=== PATIENT | male | born 1975 | race Caucasian/White ===

== ENCOUNTER 2017-08-07 21:54 | Emergency (ER) | payer MEDICAID ==
[~2017-08-07] VITALS: Ht 175.3 cm; Wt 90.7 kg
[2017-08-07] MEDS ORDERED: ATENOLOL25 MG PO (22:08)
--- NOTE | 2017-08-07 22:09 | Emergency Room Report ---
History of Present Illness Time Seen by 220 Presenting Problem in Triage Pt arrived:Walked Presenting Problem:PT C/O PAIN IN HEAD AND RIGHT SIDE OF NECK FOR A COUPLE DAYS. Onset of symptoms date/time:/ or onset unknown for:MEDICAL HX UNKNOWN Treatment Prior to Arrival: [employer]LE[employer] FOREM[employer] Provided by: Sepsis Risk Assessment: Temp: 98 B/P: 192/110 MAP: 137 Pulse: 65 Resp: 20 Recent fever? N Clinical Suspician of Infection? N Mental Status: 1 - Regular (Normal Baseline) Sepsis Risk:Low Sepsis Risk Have you (or family members/close friends) recently traveled outside the [place]? N If Yes, where/when: Have you had exposure to infectious disease within the past month? N TB? Other? Specify: Source patient, RN notes reviewed, family, old records Exam Limitations no limitations Comment rt sided kimbrough over the last few days with no fever or rash and had insect bite to rt hand - no aura and no hx of migraines and no neuro sx Cardiac Chest Pain Chest pain indicative of cardiac No Timing/Duration this evening Severity moderate ALLERGIES Coded Allergies: Penicillins (08/07/17) amoxicillin (08/07/17) Home Medications Reported Medications Atenolol (Atenolol) 12.5 MG PO BID History Medical History General CAD? No Angina: No FL: No Hypertension? Yes Hyperlipidemia? Yes CHF? No DVT? No PE? No COPD? No Asthma? No Anemia? No GERD? No Gastric ulcers? No GI Bleed? No Hernia? No Thyroid Problems? No Hypothyroidism? No CVA? No Seizures? No Diabetes? No Renal Insuffiency? No End Stage Renal Disease? No UTI? No Stones? No BPH? No GB Disease: No Nephritic Syndrome? No Asplenia? No Hepatitis? No Sickle Cell Disease? No Arthritis? No Migraines? No Cataracts? No Glaucoma? No MRSA? No HIV? No TB? No Anxiety? No Depression? No Cancer? No More? Yes Additional hx: [place] WHITE SYNDROME Immunization Hx DT/Tetanus > 10 Years Ago Surgical Hx Previous Surgery?Y Tonsils And/Or Adenoids ABLASION Social History Smoking Hx Smoker: Former Smoker Tobacco: No Are you/the child exposed to second-hand smoke: No Alcohol Alcohol: No Drugs none Review of Systems All Other Systems Reviewed and Negative Constitutional denies fever Eyes denies blurred vision, denies photophobia, denies vision change ENT denies: ear pain, ear discharge, epistaxis, throat pain. Respiratory denies cough, denies shortness of breath Cardiovascular denies chest pain, denies syncope Gastrointestinal denies abdominal pain, denies diarrhea, denies vomiting Genitourinary denies: dysuria, frequency, hesitancy, hematuria. Musculoskeletal denies back pain, denies joint pain, denies joint swelling, denies neck pain Skin see HPI, denies rash, other Psychiatric/Neurological see HPI, headache, denies seizure Physical Exam Vital Signs Vital Signs Date Time Temp Pulse Resp B/P Pulse O2 O2 Flow FiO2 Ox Delivery Rate 08/07 2157 98.0 65 20 192/110 96 - WBC >12,000 or <4,000 or 10% bands? 2 or more SIRS Criteria Met? B/P:192/110 MAP:137 Creatinine >2.0? UA output<0.5ml/kg/hr for 2 hrs? Platelet count >100,000? Lactate >2.0mmol/1? INR >1.2 or PTT > than 60 sec? Evidence of Organ Dysfunction? Provider documented clinical suspician of infection? N Sepsis Criteria Count: 1 Sepsis Risk: Low Sepsis Risk General Appearance no apparent distress Eye Exam - bilateral eye PERRL, bilateral eye EOMI Ear, Nose, Throat normal ENT inspection Neck non-tender Respiratory Status No: respiratory distress. Cardiovascular regular rate/rhythm Peripheral Pulses Pulses normal Yes Gastrointestinal soft Extremities normal inspection Strength 4 Upper Ext (L), 4 Upper Ext (R), 4 Lower Ext (L), 4 Lower Ext (R) Neurologic alert, manager integrated II-XII nml as tested, no motor/sensory deficits Glascow Coma Scale Glascow Coma Scale Response Value EYE response: 4 Spontaneously 4 MOTOR response: 6 OBEYS 6 VERBAL response: 5 Oriented & Converses 5 Total 15 Reflexes Reflexes normal Yes Mental status normal mood/affect Skin no rash cons.w/shingles Medical Decision Making LABS/Meds/Orders Pt receiving controlled substance in ED? No Results/Orders Orders Procedure Date/time Status DIET-NOTHING BY MOUTH 08/[address] SINUS (MAX-FACIAL W/O CONT) 08/[address] SCAN REQ 08/07 2209 Complete SED RATE 08/07 2209 Active COMPLETE METABOLIC PANEL 08/07 2209 Active CBC WITH AUTO DIFF 08/[address] HEAD W/O CONTRAST 08/07 UNK Active XRAY/CT/US XRAY/CT/US CT head, sinus CT interpretation by discussed w/radiologist Time results known: 2242 CT Results normal/NAD Departure Departure Time of Disposition 2240 Disposition DC Home or Self Care(routine) Clinical Impression Primary Impression: Headache Qualifiers: Headache type: unspecified Headache chronicity pattern: acute headache Intractability: not intractable Qualified Code: R51 - Headache Secondary Impressions: Cellulitis Qualifiers: Site of cellulitis: extremity Site of cellulitis of extremity: upper extremity Laterality: right Qualified Code: L03.113 - Cellulitis of right upper limb Condition STABLE Patient Instructions DI for Headache Additional Instructions use meds and see pcp about bp and headache Discharge Counseling Counseled pt/family regarding diagnosis, test results, medications/RX, follow up needs Prescriptions Current Visit Scripts SULFAMETHOXAZOLE/TRIMETHOPRIM (Sulfamethoxazole-Tmp Ds Tablet) 1 TAB PO BID #14 TAB MUPIROCIN 2% (Bactroban Oint) 1 SCOTTIE TP BID #1 TUBE ED Critical Care Critical Care No at 2249
[2017-08-07] MEDS ORDERED: SEPTRA DS 800 M1 TAB PO (22:44)
[2017-08-07] MEDS ORDERED: BACTROBAN2% TP (22:44)
[2017-08-07 22:55] VITALS: BP 146/93
--- NOTE | 2017-08-08 05:27 | RADIOLOGY REPORT PS360 ---
CT HEAD W/O CONTRAST HISTORY: Severe headache DIEHL ORDERING PHYSICIAN: Jina Quevedo MD PATIENT AGE: 42 years COMPARISON: None TECHNIQUE: Axial images obtained without contrast. Brain and bone windows reviewed. FINDINGS: No midline shift, mass effect, intracranial hemorrhage, hydrocephalus, or extra-axial fluid collection is evident. The calvarium has an unremarkable appearance. No mastoid effusion. The visualized paranasal sinuses are unremarkable. IMPRESSION: No acute intracranial findings.
--- NOTE | 2017-08-08 05:31 | RADIOLOGY REPORT PS360 ---
CT SINUS (MAX-FACIAL W/O CONT) CLINICAL INDICATION: Severe headache DIEHL ORDERING PHYSICIAN: Jina Quevedo MD PATIENT AGE: 42 years COMPARISON: None TECHNIQUE:Axial, sagittal, and coronal images are generated and reviewed without contrast COMPARISON: None FINDINGS:No sinus air-fluid level. Trace mucosal thickening involving the maxillary and ethmoid sinuses. Small right lawanda bullosa. Small septal spur on the left. There is mild rightward nasal septal deviation superiorly and leftward nasal septal deviation inferiorly. The ostiomeatal complexes are patent but slightly narrowed right greater than left. Sandhya cells are present contributing to ostiomeatal narrowing. The TMJs are unremarkable as are the orbits. No mastoid effusion. IMPRESSION: 1. Mild chronic sinus disease as detailed above. 2. Small right lawanda bullosa with Sandhya cells and left nasal septal spur
== END 2017-08-07 22:56 | disposition home or self-care (01) ==
LOC: ER 21:54
DX: R51 Headache (principal); L03.113 Cellulitis of right upper limb; Z88.0 Allergy status to penicillin; I10 Essential (primary) hypertension; E78.5 Hyperlipidemia, unspecified; Z87.891 Personal history of nicotine dependence

== ENCOUNTER 2017-10-20 15:44 | Emergency (ER) | payer MEDICAID ==
[~2017-10-20] VITALS: Ht 175.3 cm; Wt 104.3 kg
[~2017-10-20 15:44] MED LIST: ATENOLOL25 MG PO; BACTROBAN2% TP; SEPTRA DS 800 M1 TAB PO
--- OUTSIDE RECORDS SUMMARY | 2017-10-20 15:56 | External Medical Summary Rpt | CCD ---
Author Author , CHELSEY BARBOSA Address Unknown Phone [email or web address] Care Team Providers Care Records Assistant Name Role Phone [facility] Unavailable HEALTH C, [facility] NGUYEN, NGUYEN Unavailable Unavailable FROYLAN, FROYLAN Unavailable Unavailable [facility] Unavailable Unavailable [facility], [facility] Unavailable Unavailable INC, [facility] Un[facility] Unavailable [facility], [facility] [place] [facility] Unavailable Unavailable [facility], [place] [facility], Unavailable Unavailable PLLC, [facility], [facility] Unavailable Unavailable EM[facility]Y [facility], [facility], Unavailable Unavailable [facility], Unavailable Unavailable [facility] Purpose Continuity of Care Document - 04-03-2016 through 2016 Problems Code Diagnosis DOS Provider Status E785 HYPERLIPIDE 08-07-2017 [facility] UNSPECIFIED INC I10 ESSENTIAL 08-07-2017 [facility] HYPERTENSIO INC N [id number] CELLULITIS 08-07-2017 [facility] OF RIGHT PHYSICIANS, UPPER LIMB [facility] R51 HEADACHE 08-07-2017 [facility], [facility] [id number] PERSONAL 08-07-2017 [facility] NICOTINE INC DEPENDENCE Z880 ALLERGY 08-07-2017 [facility] PENICILLIN INC [id number] EFFUSION 11-01-2016 [facility] LEFT KNEE N EMERGENCY PHYS [id number] PAIN IN 11-01-2016 [facility] LEFT KNEE N EMERGENCY PHYS I456 PRE-EXCITAT 08-06-2016 [facility] SYNDROME R001 BRADYCARDIA 08-06-2016 [place] [facility] UNSPECIFIED [facility]OUNDATION [id number] SECONDARY 07-24-2016 [facility] NONINFECTIO LAW US IRIDOCYCLIT IS BILATERAL H5203 HYPERMETROP 07-24-2016 [facility] [place] LAW BILATERAL [id number] PAIN IN 06-27-2016 [facility] RIGHT KNEE [facility] R0600 DYSPNEA 06-27-2016 [facility] R0601 ORTHOPNEA 06-27-2016 [facility] [id number] PERSONAL HX 04-03-2016 [facility] INFARCT NO RESID DEFICIT Medications Na ND Rx Da Fi Fi Am Da Di Ph RX Ph St me C No te ll ll ou ys ag ar # ys at rm s nt no ma ic us Or Da si cy ia de te s n re d AT 68 10 11 60 30 00 WA Ac EN 38 -0 -1 .0 00 L- ti OL 20 9- 0- 00 07 MA ve OL 02 20 20 49 RT 20 17 17 72 25 1 27 PH AR MG MA CY TA BL #5 ET 91 AT 68 10 11 30 30 00 WA Ac OR 64 -0 -1 .0 00 L- ti VA 50 9- 0- [address] 45 20 20 49 RT AT 95 17 17 72 IN 4 30 PH AR 20 MA CY MG #5 TA 91 BL ET AT 00 07 07 60 30 00 WA Ac EN 78 -0 -2 .0 00 L- ti OL 11 5- 8- 00 07 MA ve OL 07 20 20 49 RT 80 17 17 72 25 1 27 PH AR MG MA CY TA BL #5 ET 91 AT 68 07 07 30 30 00 WA Ac OR 64 -0 -2 .0 00 L- ti VA 50 5- 8- [address] 45 20 20 49 RT AT 95 17 17 72 IN 4 30 PH AR 20 MA CY MG #5 TA 91 BL ET AT 00 01 02 60 30 00 WA Ac EN 78 -2 -1 .0 00 L ti OL 11 6- 7- 00 07 MA ve OL 07 20 20 14 RT 80 17 17 85 25 1 33 PH AR MG MA CY TA BL 10 ET -2 96 7 AT 68 01 02 30 30 00 WA Ac OR 64 -2 -1 .0 00 L ti VA 50 6- 7- [address] 48 20 20 14 RT AT 17 17 17 85 IN 0 34 PH AR 20 MA CY MG 10 TA -2 BL 96 ET 7 ME 69 12 01 20 10 00 CV Ac LO 09 -2 -1 .0 00 S ti XI 70 2- 3- 00 01 PH ve CA 15 20 20 27 AR M 80 16 17 79 MA 7. 7 82 CY 5 MG #0 23 TA 32 BL ET TR 00 12 01 12 2 00 CV Ac AM 09 -2 -1 .0 00 S ti AD 30 2- 3- 00 01 PH ve OL 05 20 20 27 AR 80 16 17 79 MA HC 5 83 CY L 50 #0 23 MG 32 TA BL ET Procedures Procedure [place] [address] [facility] HEAD/BRAI 7 MEDICAL N W/[place] [address] [facility] [facility] MAXILLOFA 7 MEDICAL MEDICAL CIAL W/O IMAGING IMAGING CONTRAST ASS ASS MATERIAL Encounters Encounter Start End Date Code Location Performer Type Date EMERGENCY 85744 JO[facility] GALEANO DEPT 7 7 PHYSICIAN VISIT S, PLLC HIGH SEVERITY& THREAT [facility] EMERGENCY [address]60 [facility] 7 7 [facility] VISIT LOW/MODER [facility] 7 7 [facility] [place] [address] 6 N [facility] [place] [address] Y [facility] [place] [address] Y [facility] [place] [address] 6 N [facility] [place]
--- OUTSIDE RECORDS SUMMARY | 2017-10-20 15:56 | External Medical Summary Rpt | CCD ---
Author Author , CHELSEY BARBOSA Address Unknown Phone [email or web address] Care Team Providers Care Sap Solution Manager Consultant Name Role Phone [facility] Unavailable Unavailable HEALTH C, [facility] NGUYEN, NGUYEN Unavailable Unavailable FROYLAN, FROYLAN Unavailable Unavailable [facility] Unavailable Unavailable [facility]OSPITA, [facility] Unavailable Unavailable INC, [facility] Unavailable Unavailable [facility], [facility] Unavailable Unavailable [facility], [facility], Unavailable Unavailable PLLC, [facility], [facility] Unavailable Unavailable EMERGENCY PHYS, [facility], Unavailable Unavailable [facility], Unavailable Unavailable [facility] Purpose Continuity of Care Document - 04-03-2016 through 2016 Problems Code Diagnosis DOS Provider Status E785 HYPERLIPIDE 08-07-2017 [facility] UNSPECIFIED INC I10 ESSENTIAL 08-07-2017 [facility] HYPERTENSIO INC N [id number] CELLULITIS 08-07-2017 [facility] OF RIGHT PHYSICIANS, UPPER LIMB [facility] R51 HEADACHE 08-07-2017 [facility] PHYSICIANS, [facility] [id number] PERSONAL 08-07-2017 [facility] NICOTINE INC DEPENDENCE Z880 ALLERGY 08-07-2017 [facility] PENICILLIN INC [id number] EFFUSION 11-01-2016 [facility] LEFT KNEE N EMERGENCY PHYS [id number] PAIN IN 11-01-2016 [facility] LEFT KNEE N EMERGENCY PHYS I456 PRE-EXCITAT 08-06-2016 [facility] SYNDROME R001 BRADYCARDIA 08-06-2016 [place] [facility] UNSPECIFIED FOUNDATION [id number] SECONDARY 07-24-2016 [facility] NONINFECTIO LAW US IRIDOCYCLIT IS BILATERAL H5203 HYPERMETROP 07-24-2016 [facility] [place] LAW BILATERAL [id number] PAIN IN 06-27-2016 [facility] RIGHT KNEE [facility] R0600 DYSPNEA 06-27-2016 [facility] UNSPECIFIED [facility] R0601 ORTHOPNEA 06-27-2016 [facility] [id number] PERSONAL HX 04-03-2016 [facility] INFARCT NO RESID DEFICIT L03.90 CELLULITIS, UNSPECIFIED R51 HEADACHE Medications Na ND Rx Da Fi Fi Am Da Di Ph RX Ph St me C No te ll ll ou ys ag ar # ys at rm s nt no ma ic us Or Da si cy ia de te s n re d AT 68 10 11 30 30 00 WA Ac OR 64 -0 -1 .0 00 L- ti VA 50 9- 0- [address] 45 20 20 49 RT AT 95 17 17 72 IN 4 30 PH AR 20 MA CY MG #5 TA 91 BL ET AT 68 10 11 60 30 00 WA Ac EN 38 -0 -1 .0 00 L- ti OL 20 9- 0- 00 07 MA ve OL 02 20 20 49 RT 20 17 17 72 25 1 27 PH AR MG MA CY TA BL #5 ET 91 AT 00 07 07 60 30 00 [...] Procedure DOS [place] [address] [facility] HEAD/BRAI 7 MEDICAL N W/[place] [address] [facility] MAXILLOFA 7 MEDICAL MEDICAL CIAL W/O IMAGING IMAGING CONTRAST ASS ASS MATERIAL Encounters Encounter Start End Date Code Location Performer Type Date [facility] [place] [address] 7 [facility] OUTPATIEN [facility] EMERGENCY [address] [place] [address] 7 [facility] VISIT LOW/MODER SEVERITY EMERGENCY 01306 JOSEFA GALEANO DEPT 7 7 PHYSICIAN VISIT S, [facility] HIGH SEVERITY& THREAT [facility] [place] [address] [facility] [place] [address] Y [facility] [address] [place] [address] [facility]
--- OUTSIDE RECORDS SUMMARY | 2017-10-20 15:56 | External Medical Summary Rpt | CCD ---
Author Author , CHELSEY BARBOSA Address Unknown Phone [email or web address] Care Team Providers Care Architectural Draftsperson Name Role Phone [facility] Unavailable Unavailable HEALTH C, [facility] NGUYEN, NGUYEN Unavailable Unavailable FROYLAN, FROYLAN Unavailable Unavailable [facility] Unavailable Unavailable HOSPITA, [facility] Unavailable Unavailable INC, [facility] Unavailable Unavailable IM[facility], [facility] Unavailable Unavailable [facility], [facility], Unavailable Unavailable PLLC, [facility], [facility] Unavailable Unavailable EMERGENCY PHYS, [facility], Unavailable Unavailable [facility], Unavailable Unavailable [facility] Purpose Continuity of Care Document - 04-03-2016 through 2016 Problems Code Diagnosis DOS Provider Status E785 HYPERLIPIDE 08-07-2017 [facility] UNSPECIFIED INC I10 ESSENTIAL 08-07-2017 [facility] HYPERTENSIO INC N [id number] CELLULITIS 08-07-2017 JOSEFA OF RIGHT PHYSICIANS, UPPER LIMB [facility] R51 HEADACHE 08-07-2017 [facility] PHYSICIANS, [facility] [id number] PERSONAL 08-07-2017 [facility] NICOTINE INC DEPENDENCE Z880 ALLERGY 08-07-2017 [facility] PENICILLIN INC [id number] EFFUSION 11-01-2016 [facility] LEFT KNEE N EMERGENCY PHYS [id number] PAIN IN 11-01-2016 [facility] LEFT KNEE N EMERGENCY PHYS I456 PRE-EXCITAT 08-06-2016 [facility] SYNDROME R001 BRADYCARDIA 08-06-2016 [place] [facility] UNSPECIFIED [facility]OUNDATION L34108 SECONDARY 07-24-2016 [facility] NONINFECTIO LAW US IRIDOCYCLIT IS BILATERAL H5203 HYPERMETROP 07-24-2016 [facility] [place] LAW BILATERAL S26049 PAIN IN 06-27-2016 PSYCHIATRIC RIGHT KNEE [facility] R0600 DYSPNEA 06-27-2016 PSYCHIATRIC UNSPECIFIED [facility] R0601 ORTHOPNEA 06-27-2016 [facility] Z8673 PERSONAL HX 04-03-2016 [facility] [facility] INFARCT NO [...] Procedure DOS [place] [address] [facility] HEAD/BRAI 7 MEDICAL N W/[place] [address] [facility] MAXILLOFA 7 MEDICAL MEDICAL CIAL W/O IMAGING IMAGING CONTRAST ASS ASS MATERIAL Encounters Encounter Start End Date Code Location Performer Type Date [facility] [place] [address] 7 [facility] OUT[facility]IEN [facility] EMERGENCY [address] [place] [address] [facility] VISIT LOW/MODER SEVERITY EMERGENCY 76[address] JOSEFA GALEANO DEPT 7 7 PHYSICIAN VISIT S, [facility] HIGH SEVERITY& THREAT [facility] [place] [address] [address] [facility] [place] [address] Y [facility] [address] [place] [address] 6 [facility]
--- OUTSIDE RECORDS SUMMARY | 2017-10-20 15:56 | External Medical Summary Rpt | CCD ---
Author Author , CHELSEY BARBOSA Address Unknown Phone [email or web address] Care Team Providers Care Operations Systems Specialist Name Role Phone [facility] Unavailable HEALTH C, [facility] NGUYEN, NGUYEN Unavailable Unavailable FROYLAN, FROYLAN Unavailable Unavailable [facility] Unavailable Unavailable HOSPITA, [facility] Unavailable Unavailable INC, [facility] Unavailable Unavailable [facility], [facility] Unavailable Unavailable [facility], [place] [facility], Unavailable Unavailable PLLC, [facility], [facility] Unavailable Unavailable EM[facility], [facility], Unavailable Unavailable [facility], Unavailable Unavailable [facility] Purpose Continuity of Care Document - 04-03-2016 through 2016 Problems Code Diagnosis DOS Provider Status E785 HYPERLIPIDE 08-07-2017 [facility] UNSPECIFIED INC I10 ESSENTIAL 08-07-2017 [facility] HYPERTENSIO INC N [id number] CELLULITIS 08-07-2017 JOSEFA OF RIGHT PHYSICIANS, UPPER LIMB [facility] R51 HEADACHE 08-07-2017 [facility] PHYSICIANS, [facility] [id number] PERSONAL 08-07-2017 [facility] NICOTINE INC DEPENDENCE Z880 ALLERGY 08-07-2017 [facility] PENICILLIN INC C24801 EFFUSION 11-01-2016 [facility] LEFT KNEE N EMERGENCY PHYS [id number] PAIN IN 11-01-2016 [facility] LEFT KNEE N EMERGENCY PHYS I456 PRE-EXCITAT 08-06-2016 [facility] SYNDROME R001 BRADYCARDIA 08-06-2016 [place] [facility] UNSPECIFIED FOUNDATION E71740 SECONDARY 07-24-2016 [facility] NONINFECTIO LAW US IRIDOCYCLIT IS BILATERAL H5203 HYPERMETROP 07-24-2016 [facility] [place] LAW BILATERAL [id number] PAIN IN 06-27-2016 [facility] RIGHT KNEE [facility] R0600 DYSPNEA 06-27-2016 [facility] R0601 ORTHOPNEA 06-27-2016 [facility] Z8673 PERSONAL HX 04-03-2016 [facility] INFARCT NO [...] Procedure [place] [address] [place] [facility] HEAD/BRAI 7 MEDICAL N W/[place] [address] [place] [facility] MAXILLOFA 7 MEDICAL MEDICAL CIAL W/O IMAGING IMAGING CONTRAST ASS ASS MATERIAL Encounters Encounter Start End Date Code Location Performer Type Date EMERGENCY 99540 JOSEFA GALEANO DEPT 7 7 PHYSICIAN VISIT S, PLLC HIGH SEVERITY& THREAT [facility] EMERGENCY 63424 [facility] 7 7 [facility] VISIT LOW/MODER [facility] 7 7 [facility] [place] [address] [address] N [facility] [place] [address] Y [facility] [place] [address] Y [facility] [place] [address] 6 N [facility]
--- OUTSIDE RECORDS SUMMARY | 2017-10-20 15:57 | External Medical Summary Rpt ---
Author Author CHELSEY Tiwari, CHELSEY Tiwari Organization [employer] Address Unknown Phone Unavailable
--- OUTSIDE RECORDS SUMMARY | 2017-10-20 15:57 | External Medical Summary Rpt | CCD ---
Demographics Preferred Language Turkmen Marital Status Unknown Episcopalian Affiliation Unknown Race Unknown Ethnic Group Unknown Author Author , EMILY BARBOSA Address Unknown Phone Immunization No patient found.
--- OUTSIDE RECORDS SUMMARY | 2017-10-20 15:57 | External Medical Summary Rpt | CCD ---
Demographics Preferred Language Spanish Marital Status Unknown Muslim Affiliation Unknown Race Unknown Ethnic Group Unknown Author Author , EMILY BARBOSA Address Unknown Phone Immunization No patient found.
[2017-10-20] MEDS ORDERED: LIPITOR40 MG PO (15:59)
--- NOTE | 2017-10-20 16:20 | Urgent Treatment Center Report ---
History of Present Issue Date/Time Seen by Provider 10/20/17 1608 Visit Reason Pt arrived:Walked Presenting Problem:PT STATES HE INJURED HIS LEFT FOOT AFTER SMASHING IT IN A DOOR Location if Accident: Onset of symptoms date/time:/ or onset unknown for:MEDICAL HX UNKNOWN Have you (or family members/close friends) recently traveled outside the [place]? N If Yes, where/when: Have you had exposure to infectious disease within the past month? TB? Other? Specify: Patient state that he was at work on Saturday when he accidently got his foot caught between door and and door frame States that he has been having pain on the side of his foot ever since State that he is not having any swelling or bruising but when he walks he feels like there is something in there "popping" ALLERGIES Coded Allergies: Penicillins (08/07/17) amoxicillin (08/07/17) mustard (10/20/17) Home Medications Reported Medications Atenolol (Atenolol) 12.5 MG PO BID Atorvastatin Calcium (Atorvastatin) 40 MG PO DAILY History Medical History General CAD? No Angina: No CO: No Hypertension? Yes Hyperlipidemia? Yes CHF? No DVT? No PE? No COPD? No Asthma? No Anemia? No GERD? No Gastric ulcers? No GI Bleed? No Hernia? No Thyroid Problems? No Hypothyroidism? No CVA? No Seizures? No Diabetes? No Renal Insuffiency? No UTI? No Stones? No BPH? No GB Disease: No Nephritic Syndrome? No Asplenia? No Hepatitis? No Sickle Cell Disease? No Arthritis? No Migraines? No Cataracts? No Glaucoma? No MRSA? No HIV? No TB? No Anxiety? No Depression? No Cancer? No More? Yes Additional hx: [place]S WHITE SYNDROME Immunization HX DT/Tetanus > 10 Years Ago Surgical Hx Previous Surgery?Y Tonsils And/Or Adenoids ABLASION Social History Smoking Hx Smoker: Never Smoker Tobacco: No Alcohol Alcohol: No Review of Systems All Other Systems Reviewed and Negative Comment Pain in left foot after hurting at work on Saturday when he got it caught between door and door frame Physical Exam Vital Signs Vital Signs Date Time Temp Pulse Resp B/P Pulse O2 O2 Flow FiO2 Ox Delivery Rate 10/20 1557 97.9 67 20 173/101 98 General Appearance normal appearance, WD/WN, no apparent distress Respiratory Status Yes: trachea midline, chest symmetrical, non tender chest. No: respiratory distress. Lung Sounds bilateral: normal breath sounds, lungs clear. Cardiovascular normal exam, regular rate/rhythm, no peripheral edema Neurologic alert, normal exam, oriented x 3 Medical Decision Making LABS/Meds/Orders Pt receiving controlled substance in ED? No Results/Orders Current Medication Orders Sig/Geovanna Start time Last Medication Dose Route Stop Time Status Admin Ibuprofen 800 MG ONCE ONE 10/20 1630 DC 10/20 PO 10/20 1631 1632 Ibuprofen 0 .STK-MED ONE 10/20 1629 DC PO Orders Procedure Date/time Status UTC STABILIZE JOINT/AREA 10/20 165 Active FOOT-LT-3 VIEWS 10/20 1600 Active XRAY/CT/US XRAY/CT/US XRAY foot XR interpretation by reviewed by me Xray Results no fracture seen Comment Will have Radiologist do official reading and call with any discrepancies seen Departure Departure Time of Disposition 1655 Disposition DC Home or Self Care(routine) Clinical Impression Primary Impression: Foot sprain Qualifiers: Encounter type: initial encounter Laterality: left Qualified Code: S93.602A - Unspecified sprain of left foot, initial encounter Condition STABLE Referrals Sunil Parisi MD: 3 Days-Call Office If no improvement or worsening of symptoms LANIE KASPER MD: 3 Days-Call Office If no improvement of pain or worsening of symptoms Patient Instructions DI for Foot Pain, DI for Foot Sprain, How To Perform RICE ( Rest, Ice, Compress, Elevate) Additional Instructions *weight bearing as tolerated *RICE, Rest the extremity, Ice 15-20 minutes 3-4 times daily, Compress- wear the vlad wrap as discussed as much as possible to help reduce swelling and pain, Elevate the extremity when at rest *Vlad wrap is for support and help control swelling, use it except in the shower. Be sure that is not to tight but not to loose either *Elevate when resting *Ibuprofen 600-800mg every 6-8 hours as needed for pain an inflammation. If need something more can take Tylenol in between doses of Ibuprofen to help Immediately follow up for new or worsening of symptoms, or no noticeable improvement over the next 3-5 days Discharge Counseling Counseled pt/family regarding diagnosis, test results, medications/RX, home care, follow up needs Prescriptions Current Visit Scripts Ibuprofen (Ibuprofen 800MG) 800 MG PO QIDP PRN pain #30 TAB at [id number]
[2017-10-20] MEDS ORDERED: IBUPROFEN800 MG PO (16:59)
[2017-10-20 17:12] VITALS: BP 168/90
--- NOTE | 2017-10-20 17:55 | RADIOLOGY REPORT PS360 ---
FOOT-LT-3 VIEWS COMPARISON: None HISTORY: Crush injury in car door TECHNIQUE: AP lateral and oblique views FINDINGS: There is mild diffuse soft tissue swelling of the forefoot. The tarsal bones metatarsals and phalanges all appear intact with no evidence of recent or old fracture. There is a small bone density adjacent to the tip of the medial malleolus probably due to old avulsion chip fracture with partial fusion. The plantar arch is normal. There is a small spur of the calcaneus at insertion of Achilles tendon. IMPRESSION: Mild soft tissue swelling forefoot dorsally, no fracture seen
== END 2017-10-20 17:13 | disposition home or self-care (01) ==
LOC: UTC 15:44
DX: S93.602A Unspecified sprain of left foot, initial encounter (principal); W23.0XXA Caught, crushed, jammed, or pinched between moving objects, initial encounter; Y93.89 Activity, other specified; Y92.9 Unspecified place or not applicable; Y99.0 Civilian activity done for income or pay; I10 Essential (primary) hypertension; E78.5 Hyperlipidemia, unspecified; Z79.899 Other long term (current) drug therapy; I45.6 Pre-excitation syndrome